=== PATIENT | male | born 1995 | race Caucasian/White ===

== ENCOUNTER 2018-03-29 02:29 | Emergency (ER) | payer OTHER ==
[~2018-03-29] VITALS: Ht 170.2 cm; Wt 74.1 kg
[2018-03-29 02:32] VITALS: TEMP 99
[2018-03-29] MEDS ORDERED: BACTRIM DS 8001 TAB PO (03:50)
[2018-03-29 03:59] VITALS: BP 112/74; PULSE 72
== END 2018-03-29 04:01 | disposition home or self-care (01) ==
LOC: COL.ER 02:29
DX: S02.40DA Maxillary fracture, left side, initial encounter for closed fracture (principal); S02.2XXA Fracture of nasal bones, initial encounter for closed fracture; Y04.0XXA Assault by unarmed brawl or fight, initial encounter